=== PATIENT | male | born 1990 | race Caucasian/White ===

== ENCOUNTER 2019-09-16 08:38 | Emergency (ER) | payer OTHER ==
[~2019-09-16] VITALS: Ht 175.3 cm; Wt 108.9 kg
[~2019-09-16 08:38] MED LIST: CARISOPRODOL 3350 MG PO; CILOXAN5 ML OP; CLEOCIN HCL150 MG PO; DILANTIN; DILANTIN100 MG PO; DOXYCYCLINE 10100 MG PO; GENTAMICIN SU3 MG/ML OPHTHALMIC; HYDROCODONE-AP1 EAC6 PO; LOTENSIN20 MG PO; NOHOMEMEDICATIONS; NORCO 5-325 TA1 EACH PO; PERCOCET 5-3251 EACH PO; PERCOCET PO; TRAMADOL 50 MG50 MG PO; ULTRAM 50MG TAB50 MG PO; VIGAMOX3 M1 OPHTHALMIC; XANAX 0.25 MG0.25 MG; XANAX 0.25 MG0.25 MG PO; XANAX 0.5 MG0.5 M1 PO; XANAX 0.5 MG0.5 MG PO; XANAX 1 MG TABLE1 MG PO; XANAX XR1 MG; XANAX XR2 MG PO
[2019-09-16] MEDS ORDERED: ZOLOFT 50 MG TA50 M1 PO (09:34)
[2019-09-16] MEDS ORDERED: XANAX 0.5 MG0.5 M1 PO (09:34)
[2019-09-16 09:42] VITALS: BP 170/101
== END 2019-09-16 09:43 | disposition home or self-care (01) ==
LOC: M.ERS 08:38
DX: F41.0 Panic disorder [episodic paroxysmal anxiety] (principal); I10 Essential (primary) hypertension; Z88.2 Allergy status to sulfonamides

== ENCOUNTER 2020-03-17 16:45 | Emergency (ER) | payer OTHER ==
[~2020-03-17] VITALS: Ht 175.3 cm; Wt 113.4 kg
[~2020-03-17 16:45] MED LIST changes: +ZOLOFT 50 MG TA50 M1 PO
[2020-03-17 16:53] VITALS: BP 157/109
[2020-03-17] MEDS ORDERED: XANAX 0.5 MG0.5 M1 PO (17:39)
[2020-03-17 17:41] LABS: ABSOLUTE BASOPHILS 0.1 thou/uL (0.0-0.2); ABSOLUTE LYMPHOCYTES 2.8 thou/uL (0.8-5.3); ABSOLUTE MONOCYTES 0.7 thou/uL (0.0-1.2); ABSOLUTE NEUTROPHILS 6.4 thou/uL (1.6-8.1); BASOPHILS 0.6 %; EOSINOPHILS 0.5 %; HEMATOCRIT 46.4 % (42.0-52.0); HEMOGLOBIN 16.4 gm/dL (14.0-18.0); LYMPHOCYTES 27.7 %; MCHC 35.4 g/dL (28.0-37.0); MCV 93.3 fL (80.0-100.0); MONOCYTES 6.7 %; MPV 9.4 fl. (7.2-11.1); NUCLEATED RBCS 0 /100WBC; PLATELET COUNT* 206 thou/uL (150-400); POLYS 64.5 %; RBC 4.97 mil/uL (4.50-6.00); RDW-CV 13.2 % (10.5-14.5)
[2020-03-17 17:50] LABS: CALCIUM 8.6 mg/dL (8.5-10.1); CREATININE 1.1 mg/dL (0.6-1.3); POTASSIUM 3.3 mmol/L (3.5-5.1)
[2020-03-17 18:02] LABS: ALBUMIN 3.9 g/dL (3.4-5.0); TOTAL BILIRUBIN 1.5 mg/dL (<0.1-1.0); TOTAL PROTEIN 8.6 g/dL (6.4-8.2)
--- NOTE | 2020-03-18 09:04 | EKG ---
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: [employer] : 1990 Requested By: Carolina Burns Order Number: [id number] MD: Tristan Campo Measurements Intervals [place] Rate: 109 P: 30 MO: 161 QRS: 2 QRSD: 92 T: 3 QT: 342 QTc: 461 Interpretive Statements Sinus tachycardia Probable left atrial enlargement Anterior infarct, old Borderline T abnormalities, inferior leads Baseline wander in lead(s) II,III,aVR,aVF,V1,V4,V5 Compared to ECG 04/17/2015 02:30:04 Myocardial infarct finding now present T-wave abnormality now present Electronically Signed On 03-18-2020 9:04:11 CDT by Tristan Campo [email or web address] <ELECTRONICALLY SIGNED> By: Tristan Campo MD, FACC 03/18/20 0904 00 00 Tristan Campo MD, [facility] /EPI
== END 2020-03-17 19:30 | disposition home or self-care (01) ==
LOC: M.ERS 16:45
PROVIDERS: Nurse Practitioner Family
DX: F41.9 Anxiety disorder, unspecified (principal); R79.89 Other specified abnormal findings of blood chemistry; I10 Essential (primary) hypertension; F17.210 Nicotine dependence, cigarettes, uncomplicated; Z88.2 Allergy status to sulfonamides

== ENCOUNTER 2020-05-05 03:11 | Emergency (ER) | payer OTHER ==
[~2020-05-05] VITALS: Ht 175.3 cm; Wt 99.8 kg
[2020-05-05] MEDS ORDERED: XANAX 0.5 MG0.5 M1 PO (03:18)
[2020-05-05 03:42] LABS: URINE BILIRUBIN NEGATIVE (Negative); URINE BLOOD NEGATIVE (Negative); URINE CLARITY CLEAR; URINE COLOR YELLOW; URINE GLUCOSE-RANDOM NEGATIVE (Negative); URINE KETONES NEGATIVE (Negative); URINE LEUKOCYTES-REFLEX NEGATIVE (Negative); URINE NITRITE-REFLEX NEGATIVE (Negative); URINE PROTEIN NEGATIVE (Negative); URINE SPECIFIC GRAVITY >= 1.030 (1.005-1.030); URINE UROBILINOGEN 0.2 E.U./dl (0.2-1.0)
[2020-05-05 03:49] LABS: HEMATOCRIT 42.4 % (42.0-52.0); MCHC 35.5 g/dL (28.0-37.0); MCV 92.9 fL (80.0-100.0); MPV 9.3 fl. (7.2-11.1); NUCLEATED RBCS 0 /100WBC; PLATELET COUNT* 136 thou/uL (150-400); RBC 4.56 mil/uL (4.50-6.00); RDW-CV 13.9 % (10.5-14.5); WBC 9.2 thou/uL (4.0-11.0)
[2020-05-05 04:02] LABS: INR 1.1; PROTIME 11.7 Seconds (9.20-11.50)
[2020-05-05 04:11] LABS: ALBUMIN 3.2 g/dL (3.4-5.0); MAGNESIUM 2.1 mg/dL (1.8-2.4); TOTAL BILIRUBIN 0.9 mg/dL (<0.1-1.0)
[2020-05-05 04:19] LABS: AMP/METHAMP Negative (Negative); BARBITURATES Negative (Negative); BENZODIAZEPINES POSITIVE (Negative); COCAINE Negative (Negative); METHADONE Negative (Negative); OPIATES Negative (Negative); PCP Negative (Negative); THC POSITIVE (Negative)
[2020-05-05 05:12] LABS: TOTAL PROTEIN 6.7 g/dL (6.4-8.2)
[2020-05-05 05:30] VITALS: BP 124/73
[2020-05-05 05:50] LABS: ABSOLUTE MONOCYTES 0.2 thou/uL (0.0-1.2)
[2020-05-05 05:51] LABS: ANISOCYTOSIS 1+; PLATELET ESTIMATE DECREASED; POIKILOCYTOSIS 1+
--- NOTE | 2020-05-05 10:29 | EKG ---
[place] [address] ELECTROCARDIOGRAM REPORT Name: ONOFRE YOO [id number] Admission: 05/05/20 Attend Phys: Discharge: 05/05/20 Date of : [birth year] Date of Service: 05/05/20 0314 Report #: [id number] THIS REPORT FOR: //name// 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1990 Requested By: Tyra Braxton Order Number: [id number] MD: Macario Muniz Measurements Intervals [place] Rate: 98 P: 20 PA: 165 QRS: 4 QRSD: 96 T: 25 QT: 337 QTc: 431 Interpretive Statements Sinus rhythm poor r wave progression Compared to ECG 03/17/2020 17:01:45 Sinus tachycardia no longer present Electronically Signed On 05-05-2020 10:29:40 CDT by Macario Muniz [email or web address] <ELECTRONICALLY SIGNED> By: Macario Muniz MD, [facility] 05/05/20 1029 Macario Muniz MD, [facility] /EPI
== END 2020-05-05 05:30 | disposition home or self-care (01) ==
LOC: M.ERS 03:11
PROVIDERS: Emergency Medicine
DX: F10.129 Alcohol abuse with intoxication, unspecified (principal); Y90.7 Blood alcohol level of 200-239 mg/100 ml; F41.9 Anxiety disorder, unspecified; R10.12 Left upper quadrant pain; I10 Essential (primary) hypertension; Z79.899 Other long term (current) drug therapy

== ENCOUNTER 2020-05-19 15:22 | Emergency (ER) | payer OTHER ==
[~2020-05-19] VITALS: Ht 175.3 cm; Wt 108.9 kg
[2020-05-19] MEDS ORDERED: XANAX 0.5 MG0.5 M1 PO (16:12)
[2020-05-19 16:22] VITALS: BP 141/70
--- NOTE | 2020-05-20 14:31 | EKG ---
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1990 Requested By: Carolina Burns Order Number: [id number] MD: Tristan Campo Measurements Intervals [place] Rate: 83 P: 20 VT: 162 QRS: 16 QRSD: 91 T: 21 QT: 365 QTc: 429 Interpretive Statements Sinus rhythm ST elev, probable normal early repol pattern Compared to ECG 05/05/2020 03:14:02 ST (T wave) deviation now present Poor R-wave progression no longer present Electronically Signed On 05-20-2020 14:31:18 CDT by Tristan Campo [email or web address] <ELECTRONICALLY SIGNED> By: Tristan Campo MD, FACC 05/20/20 1431 1552 1552 Tristan Campo MD, [facility] /EPI
== END 2020-05-19 16:24 | disposition home or self-care (01) ==
LOC: M.ERS 15:22
DX: F41.9 Anxiety disorder, unspecified (principal); I10 Essential (primary) hypertension; Z88.2 Allergy status to sulfonamides

== ENCOUNTER 2020-06-05 17:24 | Emergency (ER) | payer OTHER ==
[~2020-06-05] VITALS: Ht 175.3 cm; Wt 113.4 kg
[2020-06-05 18:11] LABS: ABSOLUTE EOSINOPHILS 0.1 thou/uL (0.0-0.7); ABSOLUTE LYMPHOCYTES 1.7 thou/uL (0.8-5.3); ABSOLUTE MONOCYTES 0.4 thou/uL (0.0-1.2); ABSOLUTE NEUTROPHILS 3.4 thou/uL (1.6-8.1); BASOPHILS 0.5 %; EOSINOPHILS 1.7 %; HEMATOCRIT 38.4 % (42.0-52.0); HEMOGLOBIN 13.4 gm/dL (14.0-18.0); LYMPHOCYTES 29.8 %; MCH 34.1 pg (26.0-34.0); MCHC 34.9 g/dL (28.0-37.0); MCV 97.8 fL (80.0-100.0); MONOCYTES 7.9 %; MPV 8.9 fl. (7.2-11.1); NUCLEATED RBCS 0 /100WBC; PLATELET COUNT* 181 thou/uL (150-400); POLYS 60.1 %; RBC 3.92 mil/uL (4.50-6.00); RDW-CV 14.6 % (10.5-14.5); WBC 5.6 thou/uL (4.0-11.0)
[2020-06-05 18:22] LABS: CALCIUM 8.2 mg/dL (8.5-10.1); CREATININE 0.9 mg/dL (0.6-1.3); POTASSIUM 3.8 mmol/L (3.5-5.1)
[2020-06-05 18:27] LABS: ALBUMIN 3.8 g/dL (3.4-5.0); TOTAL BILIRUBIN 0.4 mg/dL (<0.1-1.0); TOTAL PROTEIN 8.4 g/dL (6.4-8.2)
[2020-06-05 18:31] LABS: ACETAMINOPHEN < 2 ug/mL (10-30); ALCOHOL 33 mg/dL (<10); SALICYLATE < 2.8 mg/dL (2.8-20.0)
[2020-06-05 18:47] LABS: URINE BILIRUBIN NEGATIVE (Negative); URINE BLOOD NEGATIVE (Negative); URINE CLARITY CLEAR; URINE COLOR YELLOW; URINE GLUCOSE-RANDOM NEGATIVE (Negative); URINE KETONES NEGATIVE (Negative); URINE LEUKOCYTES-REFLEX NEGATIVE (Negative); URINE NITRITE-REFLEX NEGATIVE (Negative); URINE PROTEIN NEGATIVE (Negative); URINE SPECIFIC GRAVITY >= 1.030 (1.005-1.030); URINE UROBILINOGEN 0.2 E.U./dl (0.2-1.0)
[2020-06-05 18:58] LABS: AMP/METHAMP Negative (Negative); BARBITURATES Negative (Negative); BENZODIAZEPINES POSITIVE (Negative); COCAINE Negative (Negative); METHADONE Negative (Negative); OPIATES Negative (Negative); PCP Negative (Negative); THC POSITIVE (Negative)
--- NOTE | 2020-06-06 14:19 | EKG ---
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1990 Requested By: Ranjeet Carlos Order Number: [id number] MD: Kenneth Gabriel Measurements Intervals [place] Rate: 82 P: 28 MD: 166 QRS: 6 QRSD: 96 T: 14 QT: 393 QTc: 459 Interpretive Statements Sinus rhythm Probable left ventricular hypertrophy Baseline wander in lead(s) V2 Compared to ECG 05/19/2020 15:52:39 ST (T wave) deviation no longer present Electronically Signed On 06-06-2020 14:18:55 CDT by Kenneth Gabriel [email or web address] <ELECTRONICALLY SIGNED> By: Mac Gabriel MD, FACC 06/06/20 1418 1751 1751 Mac Gabriel MD, [facility] /EPI
[2020-06-07 16:00] VITALS: BP 147/75
== END 2020-06-07 16:00 | disposition still patient (30) ==
LOC: M.ERS 17:24
PROVIDERS: Family Medicine
DX: T50.992A Poisoning by other drugs, medicaments and biological substances, intentional self-harm, initial encounter (principal); Z20.828 Contact with and (suspected) exposure to other viral communicable diseases; I10 Essential (primary) hypertension; Z88.2 Allergy status to sulfonamides; Z79.899 Other long term (current) drug therapy; Y92.89 Other specified places as the place of occurrence of the external cause

== ENCOUNTER 2020-12-11 18:39 | Emergency (ER) | payer OTHER ==
[~2020-12-11] VITALS: Ht 180.3 cm; Wt 76.2 kg
[2020-12-11] MEDS ORDERED: DILANTIN50 MG PO (18:55)
[2020-12-11] MEDS ORDERED: XANAX 0.5 MG0.5 M1 PO (18:55)
[2020-12-11 19:56] LABS: ABSOLUTE BASOPHILS 0.1 thou/uL (0.0-0.2); ABSOLUTE LYMPHOCYTES 2.3 thou/uL (0.8-5.3); ABSOLUTE MONOCYTES 0.5 thou/uL (0.0-1.2); ABSOLUTE NEUTROPHILS 2.8 thou/uL (1.6-8.1); BASOPHILS 1.1 %; EOSINOPHILS 0.8 %; HEMOGLOBIN 14.4 gm/dL (14.0-18.0); MCH 32.2 pg (26.0-34.0); MCHC 34.3 g/dL (28.0-37.0); MCV 93.8 fL (80.0-100.0); MONOCYTES 8.5 %; MPV 9.4 fl. (7.2-11.1); NUCLEATED RBCS 0 /100WBC; PLATELET COUNT* 184 thou/uL (150-400); POLYS 49.6 %; RBC 4.48 mil/uL (4.50-6.00); WBC 5.7 thou/uL (4.0-11.0)
[2020-12-11 20:00] LABS: CALCIUM 8.5 mg/dL (8.5-10.1); CREATININE 0.9 mg/dL (0.6-1.3)
[2020-12-11 20:05] LABS: ALBUMIN 3.7 g/dL (3.4-5.0); TOTAL BILIRUBIN 0.7 mg/dL (<0.1-1.0); TOTAL PROTEIN 8.4 g/dL (6.4-8.2)
[2020-12-11 20:37] LABS: URINE BILIRUBIN NEGATIVE (Negative); URINE BLOOD NEGATIVE (Negative); URINE CLARITY CLEAR; URINE COLOR YELLOW; URINE GLUCOSE-RANDOM NEGATIVE (Negative); URINE KETONES TRACE (Negative); URINE LEUKOCYTES-REFLEX NEGATIVE (Negative); URINE NITRITE-REFLEX NEGATIVE (Negative); URINE PROTEIN NEGATIVE (Negative); URINE UROBILINOGEN 0.2 E.U./dl (0.2-1.0)
[2020-12-11 20:45] LABS: AMP/METHAMP Negative (Negative); BARBITURATES Negative (Negative); BENZODIAZEPINES POSITIVE (Negative); COCAINE Negative (Negative); METHADONE Negative (Negative); OPIATES Negative (Negative); PCP Negative (Negative); THC POSITIVE (Negative)
[2020-12-11 21:26] VITALS: BP 125/65
--- NOTE | 2020-12-13 17:30 | EKG ---
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1990 Requested By: Rachel Tomlin Order Number: [id number] Katharina MD: Esvin Cagle Measurements Intervals [place] Rate: 94 P: 18 ND: 166 QRS: 5 QRSD: 94 T: 22 QT: 360 QTc: 451 Interpretive Statements Sinus rhythm LVH by voltage Baseline wander in lead(s) V1 Compared to ECG 06/05/2020 17:51:31 No significant changes Electronically Signed On 12-13-2020 17:30:25 CDT by Esvin Cagle [email or web address] <ELECTRONICALLY SIGNED> By: Esvin Cagle MD, [facility] 12/13/20 1730 1854 1854 Esvin Cagle MD, [facility] /EPI
== END 2020-12-11 21:27 | disposition home or self-care (01) ==
LOC: M.ERS 18:39
PROVIDERS: Personal Emergency Response Attendant
DX: F10.920 Alcohol use, unspecified with intoxication, uncomplicated (principal); F16.20 Hallucinogen dependence, uncomplicated; R10.32 Left lower quadrant pain; R42 Dizziness and giddiness; R53.1 Weakness; R06.02 Shortness of breath; I10 Essential (primary) hypertension; F41.0 Panic disorder [episodic paroxysmal anxiety]; Z79.899 Other long term (current) drug therapy; Z88.2 Allergy status to sulfonamides

== ENCOUNTER 2020-12-12 23:37 | Emergency (ER) | payer OTHER ==
[~2020-12-12] VITALS: Ht 175.3 cm; Wt 104.3 kg
[~2020-12-12 23:37] MED LIST changes: +DILANTIN50 MG PO
[2020-12-13] LABS: HEMATOCRIT 40.2 % (42.0-52.0); HEMOGLOBIN 13.8 gm/dL (14.0-18.0); MCHC 34.4 g/dL (28.0-37.0); MPV 8.2 fl. (7.2-11.1); RBC 4.32 mil/uL (4.50-6.00); RDW-CV 12.9 % (10.5-14.5); WBC 5.8 thou/uL (4.0-11.0)
[2020-12-13 00:13] LABS: CALCIUM 8.5 mg/dL (8.5-10.1); CREATININE 0.8 mg/dL (0.6-1.3); POTASSIUM 3.3 mmol/L (3.5-5.1)
[2020-12-13 00:19] LABS: ALBUMIN 3.5 g/dL (3.4-5.0); TOTAL BILIRUBIN 0.4 mg/dL (<0.1-1.0); TOTAL PROTEIN 7.9 g/dL (6.4-8.2)
[2020-12-13 00:25] LABS: ALCOHOL 244 mg/dL (<10); SALICYLATE < 2.8 mg/dL (2.8-20.0)
[2020-12-13 00:26] LABS: ACETAMINOPHEN < 2 ug/mL (10-30)
[2020-12-13 10:25] LABS: URINE BILIRUBIN NEGATIVE (Negative); URINE BLOOD NEGATIVE (Negative); URINE CLARITY CLEAR; URINE COLOR YELLOW; URINE GLUCOSE-RANDOM NEGATIVE (Negative); URINE KETONES NEGATIVE (Negative); URINE LEUKOCYTES NEGATIVE (Negative); URINE NITRITE NEGATIVE (Negative); URINE PROTEIN NEGATIVE (Negative); URINE SPECIFIC GRAVITY >= 1.030 (1.005-1.030); URINE UROBILINOGEN 0.2 E.U./dl (0.2-1.0)
[2020-12-13 10:32] LABS: AMP/METHAMP Negative (Negative); BARBITURATES Negative (Negative); BENZODIAZEPINES POSITIVE (Negative); COCAINE Negative (Negative); METHADONE Negative (Negative); OPIATES Negative (Negative); PCP Negative (Negative); THC POSITIVE (Negative)
[2020-12-13 13:27] VITALS: BP 150/101
== END 2020-12-13 13:28 | disposition still patient (30) ==
LOC: M.ERS 23:37
PROVIDERS: Personal Emergency Response Attendant
DX: F10.129 Alcohol abuse with intoxication, unspecified (principal); Y90.6 Blood alcohol level of 120-199 mg/100 ml; R45.851 Suicidal ideations; Z20.822 Contact with and (suspected) exposure to COVID-19; I10 Essential (primary) hypertension; F32.9 Major depressive disorder, single episode, unspecified; Z88.2 Allergy status to sulfonamides

== ENCOUNTER 2020-12-15 18:06 | Emergency (ER) | payer OTHER ==
[~2020-12-15] VITALS: Ht 177.8 cm; Wt 102.1 kg
[2020-12-15 18:36] LABS: ABSOLUTE LYMPHOCYTES 1.9 thou/uL (0.8-5.3); ABSOLUTE MONOCYTES 0.3 thou/uL (0.0-1.2); ABSOLUTE NEUTROPHILS 3.8 thou/uL (1.6-8.1); BASOPHILS 0.8 %; EOSINOPHILS 0.6 %; HEMATOCRIT 41.2 % (42.0-52.0); HEMOGLOBIN 14.1 gm/dL (14.0-18.0); MCHC 34.2 g/dL (28.0-37.0); MCV 93.6 fL (80.0-100.0); MONOCYTES 4.6 %; MPV 8.2 fl. (7.2-11.1); NUCLEATED RBCS 0 /100WBC; PLATELET COUNT* 226 thou/uL (150-400); RDW-CV 13.3 % (10.5-14.5)
[2020-12-15 18:43] LABS: CALCIUM 8.7 mg/dL (8.5-10.1); POTASSIUM 3.7 mmol/L (3.5-5.1)
[2020-12-15 18:48] LABS: ALBUMIN 3.6 g/dL (3.4-5.0); TOTAL BILIRUBIN 0.3 mg/dL (<0.1-1.0); TOTAL PROTEIN 8.1 g/dL (6.4-8.2)
[2020-12-15 18:53] LABS: ALCOHOL 284 mg/dL (<10); SALICYLATE < 2.8 mg/dL (2.8-20.0)
[2020-12-15 18:54] LABS: ACETAMINOPHEN < 2 ug/mL (10-30)
[2020-12-15 19:04] LABS: URINE BILIRUBIN NEGATIVE (Negative); URINE BLOOD NEGATIVE (Negative); URINE CLARITY CLEAR; URINE COLOR YELLOW; URINE GLUCOSE-RANDOM NEGATIVE (Negative); URINE KETONES NEGATIVE (Negative); URINE LEUKOCYTES-REFLEX NEGATIVE (Negative); URINE NITRITE-REFLEX NEGATIVE (Negative); URINE PROTEIN NEGATIVE (Negative); URINE SPECIFIC GRAVITY 1.015 (1.005-1.030); URINE UROBILINOGEN 0.2 E.U./dl (0.2-1.0)
[2020-12-15 19:12] LABS: AMP/METHAMP Negative (Negative); BARBITURATES Negative (Negative); BENZODIAZEPINES Negative (Negative); COCAINE Negative (Negative); METHADONE Negative (Negative); OPIATES Negative (Negative); PCP Negative (Negative); THC POSITIVE (Negative)
[2020-12-16 00:35] VITALS: BP 122/68
== END 2020-12-16 00:35 | disposition home or self-care (01) ==
LOC: M.ERS 18:06
PROVIDERS: Family Medicine
DX: R45.851 Suicidal ideations (principal); F10.129 Alcohol abuse with intoxication, unspecified; Y90.8 Blood alcohol level of 240 mg/100 ml or more; F91.9 Conduct disorder, unspecified; I10 Essential (primary) hypertension; Z88.2 Allergy status to sulfonamides

== ENCOUNTER 2020-12-23 21:42 | Emergency (ER) | payer OTHER ==
[~2020-12-23] VITALS: Ht 180.3 cm; Wt 86.2 kg
[2020-12-23 22:58] LABS: ABSOLUTE LYMPHOCYTES 1.7 thou/uL (0.8-5.3); ABSOLUTE MONOCYTES 0.5 thou/uL (0.0-1.2); ABSOLUTE NEUTROPHILS 3.7 thou/uL (1.6-8.1); BASOPHILS 0.8 %; EOSINOPHILS 0.2 %; HEMOGLOBIN 14.4 gm/dL (14.0-18.0); MCH 32.4 pg (26.0-34.0); MCHC 35.2 g/dL (28.0-37.0); MPV 8.7 fl. (7.2-11.1); NUCLEATED RBCS 0 /100WBC; PLATELET COUNT* 172 thou/uL (150-400); RBC 4.45 mil/uL (4.50-6.00); RDW-CV 13.9 % (10.5-14.5)
[2020-12-23 23:04] LABS: CALCIUM 8.1 mg/dL (8.5-10.1); POTASSIUM 3.8 mmol/L (3.5-5.1)
[2020-12-23 23:14] LABS: ALBUMIN 3.2 g/dL (3.4-5.0); TOTAL BILIRUBIN 1.7 mg/dL (<0.1-1.0); TOTAL PROTEIN 7.5 g/dL (6.4-8.2)
[2020-12-24 00:06] LABS: ACETAMINOPHEN < 2 ug/mL (10-30); SALICYLATE < 2.8 mg/dL (2.8-20.0)
[2020-12-24 01:36] LABS: URINE BILIRUBIN NEGATIVE (Negative); URINE BLOOD NEGATIVE (Negative); URINE CLARITY CLEAR; URINE COLOR DARK YELLOW; URINE GLUCOSE-RANDOM NEGATIVE (Negative); URINE KETONES NEGATIVE (Negative); URINE LEUKOCYTES-REFLEX NEGATIVE (Negative); URINE NITRITE-REFLEX NEGATIVE (Negative); URINE PROTEIN TRACE (Negative); URINE SPECIFIC GRAVITY >= 1.030 (1.005-1.030); URINE UROBILINOGEN 0.2 E.U./dl (0.2-1.0)
[2020-12-24 01:46] LABS: AMP/METHAMP Negative (Negative); BARBITURATES Negative (Negative); BENZODIAZEPINES POSITIVE (Negative); COCAINE Negative (Negative); METHADONE Negative (Negative); OPIATES Negative (Negative); PCP Negative (Negative); THC POSITIVE (Negative)
[2020-12-24 02:37] LABS: INR 1.6; PROTIME 16.3 Seconds (9.20-11.50)
[2020-12-24 04:41] VITALS: BP 158/86
[2020-12-25 02:06] LABS: HIV-1/HIV-2 ANTIBODY Non Reactive (Non Reactive)
[2020-12-25 02:06] LABS: HEPATITIS B SURFACE AG Negative (Negative)
== END 2020-12-24 04:43 | disposition home or self-care (01) ==
LOC: M.ERS 21:42
PROVIDERS: Emergency Medicine
DX: K75.9 Inflammatory liver disease, unspecified (principal); F10.10 Alcohol abuse, uncomplicated; R45.851 Suicidal ideations; M54.2 Cervicalgia; I10 Essential (primary) hypertension; Z88.2 Allergy status to sulfonamides; W19.XXXA Unspecified fall, initial encounter; Y93.89 Activity, other specified; Y92.89 Other specified places as the place of occurrence of the external cause; Y99.8 Other external cause status; Y90.6 Blood alcohol level of 120-199 mg/100 ml

== ENCOUNTER 2021-09-16 13:40 | Emergency (ER) | payer OTHER ==
[~2021-09-16] VITALS: Ht 175.3 cm; Wt 120.2 kg
[2021-09-16 14:21] LABS: URINE BLOOD 1+ (Negative); URINE CLARITY CLEAR; URINE COLOR YELLOW; URINE GLUCOSE-RANDOM NEGATIVE (Negative); URINE KETONES NEGATIVE (Negative); URINE LEUKOCYTES-REFLEX NEGATIVE (Negative); URINE NITRITE-REFLEX NEGATIVE (Negative); URINE PROTEIN 3+ (Negative); URINE SPECIFIC GRAVITY >= 1.030 (1.005-1.030); URINE UROBILINOGEN 0.2 E.U./dl (0.2-1.0)
[2021-09-16 14:26] LABS: ICTOTEST (BILI CONFIRMATORY) Positive (Negative); URINE BILIRUBIN 1+ (Negative)
[2021-09-16 14:27] LABS: AMP/METHAMP Negative (Negative); BARBITURATES Negative (Negative); BENZODIAZEPINES Negative (Negative); COCAINE Negative (Negative); METHADONE Negative (Negative); OPIATES Negative (Negative); PCP Negative (Negative); THC Negative (Negative)
[2021-09-16 14:29] LABS: CASTS None Seen /LPF (None Seen); SQUAMOUS 0-3 Few /LPF (0-3)
[2021-09-16 14:30] LABS: CRYSTALS None Seen /LPF (None Seen); URINE RBC 3-10 Few /HPF (0-2); URINE WBC-REFLEX None Seen /HPF (0-5)
[2021-09-16 14:45] LABS: ABSOLUTE LYMPHOCYTES 1.8 thou/uL (0.8-5.3); ABSOLUTE MONOCYTES 0.4 thou/uL (0.0-1.2); ABSOLUTE NEUTROPHILS 4.6 thou/uL (1.6-8.1); BASOPHILS 0.6 %; EOSINOPHILS 0.2 %; HEMATOCRIT 44.9 % (42.0-52.0); HEMOGLOBIN 15.6 gm/dL (14.0-18.0); LYMPHOCYTES 26.3 %; MCH 30.1 pg (26.0-34.0); MCHC 34.7 g/dL (28.0-37.0); MCV 86.7 fL (80.0-100.0); MONOCYTES 5.7 %; MPV 7.9 fl. (7.2-11.1); NUCLEATED RBCS 0 /100WBC; PLATELET COUNT* 227 thou/uL (150-400); POLYS 67.2 %; RBC 5.18 mil/uL (4.50-6.00); RDW-CV 13.3 % (10.5-14.5); WBC 6.9 thou/uL (4.0-11.0)
[2021-09-16 14:54] LABS: CALCIUM 8.5 mg/dL (8.5-10.1); CREATININE 0.9 mg/dL (0.6-1.3); POTASSIUM 3.5 mmol/L (3.5-5.1)
[2021-09-16 14:59] LABS: TOTAL BILIRUBIN 1.3 mg/dL (<0.1-1.0); TOTAL PROTEIN 8.4 g/dL (6.4-8.2)
[2021-09-16 15:02] LABS: ALCOHOL 175 mg/dL (<10)
[2021-09-16 15:03] LABS: ACETAMINOPHEN < 2 ug/mL (10-30)
[2021-09-16 15:04] LABS: SALICYLATE < 2.8 mg/dL (2.8-20.0)
[2021-09-17 08:50] VITALS: BP 170/111
== END 2021-09-17 08:50 ==
LOC: M.ERS 13:40
PROVIDERS: Nurse Practitioner Family
DX: F10.10 Alcohol abuse, uncomplicated (principal); Z20.822 Contact with and (suspected) exposure to COVID-19; R45.851 Suicidal ideations; Y90.9 Presence of alcohol in blood, level not specified; I10 Essential (primary) hypertension; Z88.2 Allergy status to sulfonamides